=== PATIENT | female | born 1950 | race Caucasian/White ===

== ENCOUNTER → 2016-10-16 | Day surgery (SDC) | payer OTHER ==
[~2016-10-16] VITALS: Ht 167.6 cm; Wt 80.3 kg
[~2016-10-16] MED LIST: ASPI-1035 PO; ATEN100T PO; BACITRACIN 50,000 UNITS/VIAL ONE; BACITRACIN ZINC 15GM TUBE TOP ONE; BUPIVACAINE HCL/PF 0.5% (5MG/ML) 10ML ONE; CALC667T5 PO; CEFAZOLIN SODIUM 1000MG/VIAL ONE; CLON0.1T PO; FENTANYL CITRATE/PF 50MCG/ML 2ML VIAL IV PRN; FERR-63 PO; GELATIN SPONGE,ABSORBABLE SZ 100 ONE; HEPARIN 1000 UNITS/ML 10ML ONE; HEPARIN SODIUM 1,000 UNIT/1ML VIAL IV ONE; HYDROMORPHONE HCL/PF 2MG/ML CPJ IV PRN; INSU3INS6 SQ; LIDOCAINE HCL 1% 20ML VIAL (Pyxis) INJ ONE; LOSA100T14 PO; MIDAZOLAM HCL 2 MG/2 ML VIAL ONE; MULT-1146 PO; NORMAL SALINE 0.9% 10 ML SYR ONE; ONDANSETRON HCL 4MG/2ML VIAL IV PRN; ONDANSETRON HCL 4MG/2ML VIAL ONE; PROPOFOL 200MG/20ML VIAL IV ONE; SITA50TA3 PO; SODIUM CHLORIDE 0.9% 500 ML IV ONE; SUCCINYLCHOLINE CHLORIDE 200MG/10ML VIAL IV ONE; THROMBIN (BOVINE) 5000 UNITS/VIAL TOP ONE
== END | disposition home or self-care (01) ==
LOC: OR 05:36
PROVIDERS: ATTEND Surgery Vascular Surgery
DX: I12.0 Hypertensive chronic kidney disease with stage 5 chronic kidney disease or end stage renal disease (principal); N18.6 End stage renal disease; E10.9 Type 1 diabetes mellitus without complications; D64.89 Other specified anemias
CPT/HCPCS: 36415; 36821; 82962; 84132; A4216; J0330; J0690; J1644; J2250; J2405; J3490; J7040; J2704

== ENCOUNTER 2017-04-08 09:10 | Emergency (ER) | payer OTHER ==
[~2017-04-08] VITALS: Ht 157.5 cm; Wt 76.0 kg
[~2017-04-08 09:10] MED LIST changes: -ASPI-1035 PO; +ASPI-1159 PO; -BACITRACIN 50,000 UNITS/VIAL ONE; -BACITRACIN ZINC 15GM TUBE TOP ONE; -BUPIVACAINE HCL/PF 0.5% (5MG/ML) 10ML ONE; -CEFAZOLIN SODIUM 1000MG/VIAL ONE; -FENTANYL CITRATE/PF 50MCG/ML 2ML VIAL IV PRN; -GELATIN SPONGE,ABSORBABLE SZ 100 ONE; -HEPARIN 1000 UNITS/ML 10ML ONE; -HEPARIN SODIUM 1,000 UNIT/1ML VIAL IV ONE; -HYDROMORPHONE HCL/PF 2MG/ML CPJ IV PRN; -LIDOCAINE HCL 1% 20ML VIAL (Pyxis) INJ ONE; -MIDAZOLAM HCL 2 MG/2 ML VIAL ONE; -NORMAL SALINE 0.9% 10 ML SYR ONE; -ONDANSETRON HCL 4MG/2ML VIAL IV PRN; -ONDANSETRON HCL 4MG/2ML VIAL ONE; -PROPOFOL 200MG/20ML VIAL IV ONE; -SODIUM CHLORIDE 0.9% 500 ML IV ONE; -SUCCINYLCHOLINE CHLORIDE 200MG/10ML VIAL IV ONE; -THROMBIN (BOVINE) 5000 UNITS/VIAL TOP ONE
[2017-04-08 11:13] LABS: BASOPHILS % 1.3 % (0.0-2.0); EOSINOPHILS % 3.4 % (0.0-5.0); HEMOGLOBIN. 12.8 g/dL (12.0-16.0); LYMPHOCYTES % 19.5 % (20.0-50.0); MEAN CORPUSCULAR HEMOGLOBIN 29.1 pg (28.0-32.0); MEAN CORPUSCULAR VOLUME 86.6 fL (81.0-99.0); MEAN PLATELET VOLUME 7.8 fl (7.4-10.4); MONOCYTES % 6.7 % (2.0-8.0); NEUTROPHILS % 69.1 % (40.0-76.0); PLATELET 252 x1000/uL (130-400); RED BLOOD CELL COUNT 4.39 mill/uL (4.2-5.4); RED CELL DISTRIBUTION WIDTH 17.6 % (11.6-14.6)
[2017-04-08 11:19] LABS: CHLORIDE 99 mEq/L (98-107)
[2017-04-08 11:21] LABS: INR 1.1; PROTHROMBIN TIME 11.2 sec (9.4-11.6)
[2017-04-08 11:27] LABS: CARBON DIOXIDE 27 mEq/L (21-32)
[2017-04-08] MEDS ORDERED: LIDOCAINE HCL 1% 20ML VIAL (Pyxis) INJ ONE (12:00)
[2017-04-08] MEDS ORDERED: CEFAZOLIN 1000MG PREMIX 50 ML IV ONE (12:00)
[2017-04-08] MEDS ORDERED: SODIUM BICARBONATE 4% (2.4MEQ) 5ML VIAL IV ONE (12:01)
[2017-04-08] MEDS ORDERED: IOHEXOL-300 50 ML BOTTLE IV ONE (12:01)
[2017-04-08] MEDS ORDERED: IOHEXOL-300 100 ML BOTTLE ONE (12:02)
[2017-04-08] MEDS ORDERED: HEPARIN 1000 UNITS/ML 10ML ONE (12:02)
[2017-04-08 12:59] VITALS: BP 192/72
[2017-04-08 13:15] VITALS: BP 192/72
[2017-04-08 13:30] VITALS: BP 186/72
[2017-04-08 13:33] VITALS: BP_SYST 186; BP_SYST 192; BP_DIAS 72
[2017-04-08 13:39] VITALS: BP_SYST 192; BP_SYST 196; BP_DIAS 72; BP_DIAS 76
[2017-04-08 15:10] VITALS: BP 175/78
== END 2017-04-08 15:12 | disposition home or self-care (01) ==
LOC: ER 10:24
DX: T82.41XA Breakdown (mechanical) of vascular dialysis catheter, initial encounter (principal); E11.22 Type 2 diabetes mellitus with diabetic chronic kidney disease; N18.6 End stage renal disease; Z79.4 Long term (current) use of insulin; Z79.82 Long term (current) use of aspirin
CPT/HCPCS: 36415; 36901; 71010; 80053; 82962; 85025; 85610; 93005; 96365; 99285; C1887; J0690; J1644; J3490; Q9967